=== PATIENT | female | born 1995 | race Asian ===

== ENCOUNTER 2018-08-24 16:45 | Observation (INO) | payer SELFPAY ==
[2018-08-24] MEDS ORDERED: IV RINGERS,LACTATED 1000ML 1,000 ML IV SCH (17:59)
[2018-08-24 18:17] LABS: BILIRUBIN,URINE SMALL (NEG); CLARITY,URINE CLEAR; COLOR,URINE AMBER; NITRITE,URINE NEGATIVE (NEG); PROTEIN,URINE 100 mg/dL (NEG-TRACE)
[2018-08-24 18:23] LABS: RBC,URINE OCC /HPF (0-2); WBC,URINE TNTC /HPF (0-4)
[2018-08-24 18:24] LABS: BACTERIA,URINE MODERATE /HPF (0-FEW); SQUAMOUS EPITHELIAL CELL,UR MOD /LPF
[2018-08-24 19:07] LABS: BASO % 0 % (0-3); EOS # 0.1 x10^3/uL (0.0-0.7); EOS % 1 % (0-3); HEMATOCRIT 27.3 % (36.0-47.0); HEMOGLOBIN 8.1 g/dL (12.0-15.5); LYMPH # 1.6 x10^3/uL (1.0-4.8); LYMPH % 20 % (24-48); MEAN CORPUSCULAR HEMOGLOBIN 21 pg (25-35); MEAN CORPUSCULAR HGB CONC 30 g/dL (31-37); MEAN CORPUSCULAR VOLUME 71 fL (79-100); MONO # 0.7 x10^3/uL (0.0-1.1); MONO % 9 % (0-9); NEUT # 5.6 x10^3uL (1.8-7.7); NEUT % 70 % (31-73); PLATELET COUNT 345 x10^3/uL (140-400); RED BLOOD COUNT 3.85 x10^6/uL (3.50-5.40); RED CELL DISTRIBUTION WIDTH 22.8 % (11.5-14.5)
[2018-08-24 19:23] LABS: PLT ESTIMATE ADEQUATE (ADEQUATE)
[2018-08-24 19:25] LABS: ANISOCYTOSIS MOD; HYPOCHROMIA MOD; MICROCYTOSIS MOD; OVALOCYTES FEW; POIKILOCYTOSIS SLIGHT
--- NOTE | 2018-08-24 20:23 | RAD ---
OB ultrasonogram 14 weeks HISTORY: pain and no care Sonographic examination of the was performed by transabdominal technique and multiple static images were obtained. There is a single live intrauterine. Superior the heartbeat is confirmed at 132 beats for minute. This is a cephalic position. There is an anterior grade 3 placenta with calcifications and venous lakes. Visualization of structures is limited at this advanced gestational age. The heart bladder and spine appear normal. The umbilical cord insertion is not well seen. The measurements are as follows: BPD 9.6 cm 39 weeks 1 day Head circumference 34 cm 30 weeks 6 days Abdominal circumference 37 cm 40 weeks 5 days Femur length 7.7 cm 39 weeks 4 days Estimated size is 39 weeks 4 days with an estimated date of confinement of August 27, 2018. Estimated weight is 8 lbs. 12 oz. +/- 21 ounces. IMPRESSION: 1. Single live intrauterine at 39 weeks 4 days. 2. Cephalic position. 3. Anterior placenta. Electronically signed by: Tylor De La Cruz III, MD (08/24/2018 8:20 PM) [facility]
== END 2018-08-24 20:15 | disposition home or self-care (01) ==
LOC: 3 SO LND 16:45
PROVIDERS: ADMIT Obstetrics & Gynecology; ATTEND Obstetrics & Gynecology
DX: O26.893 Other specified pregnancy related conditions, third trimester (principal); R10.9 Unspecified abdominal pain; Z3A.39 39 weeks gestation of pregnancy
CPT/HCPCS: 36415; 76805; 81001; 82947; 85025; 86592; 86762; 86850; 86900; 86901; 87086; 87340; G0378; G0379

== ENCOUNTER 2018-08-28 17:46 | Inpatient (IN) | payer SELFPAY ==
[~2018-08-28] VITALS: Ht 162.6 cm; Wt 69.9 kg
[2018-08-28] MEDS ORDERED: BUTORPHANOL 2 MG/ML VIAL. IV PRN (18:15)
[2018-08-28] MEDS ORDERED: ONDANSETRON PF 4 MG/2 ML VIAL. IV PRN (18:15)
[2018-08-28] MEDS ORDERED: TERBUTALINE 1 MG/ML VIAL. SQ PRN (18:15)
[2018-08-28] MEDS ORDERED: 0.9 % SODIUM CHLORIDE 10 ML DISP.SYRIN. IV PRN ×2 (18:15→22:45)
[2018-08-28] MEDS ORDERED: CITRIC ACID/SODIUM CITRATE 30 ML SOLUTION. PO PRN (18:15)
[2018-08-28] MEDS ORDERED: LIDOCAINE 1% PF 30 ML VIAL. INJ PRN (18:15)
[2018-08-28] MEDS ORDERED: fentaNYL PF VIAL 100 MCG/2 ML VIAL IV PRN ×2 (18:15)
[2018-08-28] MEDS ORDERED: OXYTOCIN 30 UNIT/500 ML PREMIX 500 ML IV PRN ×2 (18:15→22:45)
[2018-08-28] MEDS ORDERED: AMPICILLIN SODIUM 2 GM in IV NORMAL SALINE 100ML 100 ML IV ONE (18:30)
[2018-08-28] MEDS ORDERED: IV RINGERS,LACTATED 1000ML 1,000 ML IV SCH (18:30)
[2018-08-28 18:39] LABS: BILIRUBIN,URINE SMALL (NEG); CLARITY,URINE CLEAR; COLOR,URINE AMBER; NITRITE,URINE NEGATIVE (NEG); PROTEIN,URINE >=300 mg/dL (NEG-TRACE)
[2018-08-28 18:42] VITALS: BP 133/86
[2018-08-28 18:44] LABS: BASO % 0 % (0-3); EOS # 0.1 x10^3/uL (0.0-0.7); EOS % 1 % (0-3); HEMATOCRIT 28.8 % (36.0-47.0); HEMOGLOBIN 8.6 g/dL (12.0-15.5); LYMPH # 1.5 x10^3/uL (1.0-4.8); LYMPH % 19 % (24-48); MEAN CORPUSCULAR HEMOGLOBIN 21 pg (25-35); MEAN CORPUSCULAR HGB CONC 30 g/dL (31-37); MEAN CORPUSCULAR VOLUME 70 fL (79-100); MONO # 0.6 x10^3/uL (0.0-1.1); MONO % 8 % (0-9); NEUT # 5.8 x10^3uL (1.8-7.7); NEUT % 72 % (31-73); PLATELET COUNT 348 x10^3/uL (140-400); RED BLOOD COUNT 4.11 x10^6/uL (3.50-5.40)
[2018-08-28 18:45] LABS: BARBITURATES NEG (NEG); BENZODIAZEPINES NEG (NEG); CANNABINOIDS NEG (NEG); COCAINE NEG (NEG); METHADONE NEG (NEG); OPIATES NEG (NEG); PHENCYCLIDINE NEG (NEG)
[2018-08-28 18:48] LABS: AMPHETAMINE/METHAMPHETAMINE NEG (NEG)
[2018-08-28 19:10] LABS: ANISOCYTOSIS MOD; HYPOCHROMIA MOD; MICROCYTOSIS MOD; PLT ESTIMATE ADEQUATE (ADEQUATE); POIKILOCYTOSIS SLIGHT
[2018-08-28 19:11] LABS: OVALOCYTES FEW; POLYCHROMASIA SLIGHT
[2018-08-28 19:22] LABS: CREATININE,RANDOM URINE 144.6 mg/dL (Not Establ.)
[2018-08-28 19:31] LABS: ALBUMIN 2.1 g/dL (3.4-5.0); ALBUMIN/GLOBULIN RATIO 0.5 (1.0-1.7); ALK PHOS 208 U/L (46-116); ANION GAP 13 (6-14); AST (SGOT) 17 U/L (15-37); BLOOD UREA NITROGEN 9 mg/dL (7-20); BUN/CREATININE RATIO 18 (6-20); CALCIUM 8.5 mg/dL (8.5-10.1); CARBON DIOXIDE 20 mmol/L (21-32); CHLORIDE 105 mmol/L (98-107); CREATININE 0.5 mg/dL (0.6-1.0); GFR 155.7; GLUCOSE 87 mg/dL (70-99); POTASSIUM 3.9 mmol/L (3.5-5.1); SODIUM 138 mmol/L (136-145); TOTAL BILIRUBIN 0.5 mg/dL (0.2-1.0); TOTAL PROTEIN 6.5 g/dL (6.4-8.2); URIC ACID 4.1 mg/dL (2.6-6.0)
[2018-08-28 19:53] LABS: ALT (SGPT) < 6 U/L (14-59)
[2018-08-28] MEDS ORDERED: AMPICILLIN SODIUM 1 GM in IV NORMAL SALINE 50ML 50 ML IV SCH (20:30)
[2018-08-28] MEDS ORDERED: ACETAMINOPHEN 325 MG TABLET. PO PRN (22:45)
[2018-08-28] MEDS ORDERED: MAGNESIUM HYDROXIDE 2,400 MG/30 ML ORAL.SUSP. PO PRN (22:45)
[2018-08-28] MEDS ORDERED: HYDROCORTISONE 1% TOPICAL OINTMENT 30GM TUBE. TP PRN (22:45)
[2018-08-28] MEDS ORDERED: ZOLPIDEM 5 MG TABLET. PO PRN (22:45)
[2018-08-28] MEDS ORDERED: DOCUSATE SODIUM 100 MG CAPSULE. PO PRN (22:45)
[2018-08-28] MEDS ORDERED: MMR per PROTOCOL. MC PRN (22:45)
[2018-08-28] MEDS ORDERED: SIMETHICONE 80 MG TAB.CHEW PO PRN (22:45)
[2018-08-28] MEDS ORDERED: PHENYLEPH/MINERAL OIL/PETROLAT RECTAL OINTMENT 28GM TUBE. RC PRN (22:45)
[2018-08-28] MEDS ORDERED: BENZOCAINE 20% TOPICAL AEROSOL SPRAY 57GM CAN. TP PRN (22:45)
[2018-08-28] MEDS ORDERED: MAG HYDROX/ALUMINUM HYD/SIMETH 30 ML ORAL.SUSP PO PRN (22:45)
[2018-08-28] MEDS ORDERED: oxyCODONE/APAP 5/325 1 TAB TABLET PO PRN (22:45)
[2018-08-28] MEDS ORDERED: diphenhydrAMINE HCL 25 MG CAPSULE PO PRN (22:45)
--- NOTE | 2018-08-28 22:48 | PDOC ---
GENERAL General: 22 yrs old Term admitted in active labor.Cervix dilated to 6cm. Membranes intact. VITAL SIGNS Vital Signs: Vital Signs Date Time Temp Pulse Resp B/P (MAP) Pulse Ox O2 Delivery O2 Flow Rate FiO2 08/28/18 18:42 99.3 76 20 133/86 (102) 99.3 ALLERGIES Allergies: Allergies Coded Allergies Type Severity Reaction Last Updated Verified No Known Drug Allergies 08/24/18 No MEDS Medications: Current Medications Medications (Trade) Dose Ordered Sig/Ana Maria Start Time Stop Time Status Last Admin Dose Admin Ampicillin Sodium 1 gm/Sodium Chloride 50 ml @ 100 mls/hr Q4H 08/28/18 20:30 Ampicillin Sodium 2 gm/Sodium Chloride 100 ml @ 200 mls/hr 1X ONCE 08/28/18 18:30 08/28/18 18:59 DC 08/28/18 18:38 200 MLS/HR Butorphanol Tartrate (Stadol) 2 mg PRN Q1HR PRN 08/28/18 18:15 Citric Acid/ Sodium Citrate (Bicitra) 30 ml 1X PRN PRN 08/28/18 18:15 08/29/18 18:14 Fentanyl Citrate (Fentanyl 2ml Vial) 100 mcg PRN Q30MIN PRN 08/28/18 18:15 Ibuprofen (Motrin) 800 mg PRN Q6HRS PRN 08/28/18 18:15 Lidocaine HCl (Xylocaine 1% Pf 30ml Vial) 30 ml 1X PRN PRN 08/28/18 18:15 08/30/18 18:14 Ondansetron HCl (Zofran) 4 mg PRN Q4HRS PRN 08/28/18 18:15 Oxytocin/Sodium Chloride 500 ml @ 0 mls/hr CONT PRN PRN 08/28/18 18:15 Ringer's Solution 1,000 ml @ 125 mls/hr Q8H 08/28/18 18:30 08/28/18 18:39 125 MLS/HR Sodium Chloride (Normal Saline Flush) 3 ml QSHIFT PRN 08/28/18 18:15 Terbutaline Sulfate (Brethine) 0.25 mg 1X PRN PRN 08/28/18 18:15 08/29/18 18:14 LAB Lab: Laboratory Tests Test 08/28/18 16:30 4/28/19 18:25 08/28/18 18:30 Urine Collection Type Unknown Urine Color Charlee Urine Clarity Clear Urine pH 6.0 Urine Specific [place] 1.025 Urine Protein >=300 mg/dL (NEG-TRACE) Urine Glucose (UA) Negative mg/dL (NEG) Urine Ketones (Stick) Negative mg/dL (NEG) Urine Blood Moderate (NEG) Urine Nitrite Negative (NEG) Urine Bilirubin Small (NEG) Urine Urobilinogen Dipstick 2.0 mg/dL (0.2 mg/dL) Urine Leukocyte Esterase Small (NEG) Urine Opiates Screen Neg (NEG) Urine Methadone Screen Neg (NEG) Urine Barbiturates Neg (NEG) Urine Phencyclidine Screen Neg (NEG) Urine Amphetamine/Methamphetamine Neg (NEG) Urine Benzodiazepines Screen Neg (NEG) Urine Cocaine Screen Neg (NEG) Urine Cannabinoids Screen Neg (NEG) Urine Ethyl Alcohol Neg (NEG) White Blood Count 8.0 x10^3/uL (4.0-11.0) Red Blood Count 4.11 x10^6/uL (3.50-5.40) Hemoglobin 8.6 g/dL (12.0-15.5) Hematocrit 28.8 % (36.0-47.0) Mean Corpuscular Volume 70 fL (79-100) Mean Corpuscular Hemoglobin 21 pg (25-35) Mean Corpuscular Hemoglobin Concent 30 g/dL (31-37) Red Cell Distribution Width 22.0 % (11.5-14.5) Platelet Count 348 x10^3/uL (140-400) Neutrophils (%) (Auto) 72 % (31-73) Lymphocytes (%) (Auto) 19 % (24-48) Monocytes (%) (Auto) 8 % (0-9) Eosinophils (%) (Auto) 1 % (0-3) Basophils (%) (Auto) 0 % (0-3) Neutrophils # (Auto) 5.8 x10^3uL (1.8-7.7) Lymphocytes # (Auto) 1.5 x10^3/uL (1.0-4.8) Monocytes # (Auto) 0.6 x10^3/uL (0.0-1.1) Eosinophils # (Auto) 0.1 x10^3/uL (0.0-0.7) Basophils # (Auto) 0.0 x10^3/uL (0.0-0.2) Platelet Estimate Adequate (ADEQUATE) Polychromasia Slight Hypochromasia Mod Poikilocytosis Slight Anisocytosis Mod Microcytosis Mod Ovalocytes Few Sodium Level 138 mmol/L (136-145) Potassium Level 3.9 mmol/L (3.5-5.1) Chloride Level 105 mmol/L (98-107) Carbon Dioxide Level 20 mmol/L (21-32) Anion Gap 13 (6-14) Blood Urea Nitrogen 9 mg/dL (7-20) Creatinine 0.5 mg/dL (0.6-1.0) Estimated GFR (Cockcroft-Gault) 155.7 BUN/Creatinine Ratio 18 (6-20) Glucose Level 87 mg/dL (70-99) Uric Acid 4.1 mg/dL (2.6-6.0) Calcium Level 8.5 mg/dL (8.5-10.1) Total Bilirubin 0.5 mg/dL (0.2-1.0) Aspartate Amino Transf (AST/SGOT) 17 U/L (15-37) Alanine Aminotransferase (ALT/SGPT) < 6 U/L (14-59) Alkaline Phosphatase 208 U/L (46-116) Total Protein 6.5 g/dL (6.4-8.2) Albumin 2.1 g/dL (3.4-5.0) Albumin/Globulin Ratio 0.5 (1.0-1.7) Treponema pallidum Antibody Nonreactive (Nonreactive) Urine Random Creatinine 144.6 mg/dL (Not Establ.) Urine Random Total Protein 513.2 mg/dL (Not Establ.) Urine Protein/Creatinine Ratio 3549 mg/g (0-200) ASSESSMENT & PLAN A&P Patient in Active labor. Plan Vaginal Delivery. ALISON ROSEN MD Aug 28, 2018 22:48
[2018-08-29] MEDS ORDERED: IBUPROFEN 200 MG TABLET. PO SCH
--- NOTE | 2018-08-29 02:38 | OP ---
DATE OF SURGERY: 08/28/2018 DELIVERY NOTE This patient is a 22-year-old [place] lady who is a 2, para 1, term , comes into Labor and Delivery room with a history of having contractions. The patient in active labor at the time of admission to the hospital, cervix dilated to about 6 cm and the patient having active labor contractions and membranes intact, vertex presenting. heart tones are 146 per minute and she did got to complete dilatation, had a spontaneous vaginal delivery. A live male infant weighing 9 pound 9 ounce was delivered at 2350 hours with the score of 8, 9 and 9 without any problem. Cord was clamped and cut. Cord pHs were sent for and a left mediolateral episiotomy was given at the time of the delivery under local block. This was sutured with 2-0 chromic catgut sutures and the estimated blood loss about 300 mL. Baby is referred to mimeograph operator for further care and treatment. Mother tolerated the delivery well. No complications at this time. ALISON ROSEN MD DR: GIANNA/elle JOB#: [id number] / [id number]
[2018-08-29 03:45] VITALS: BP 114/74
[2018-08-29 05:14] VITALS: BP 113/71
[2018-08-29] MEDS: FERROUS SULFATE 325 MG TABLET. PO SCH ×2 (09:28→17:41)
[2018-08-29] MEDS: IBUPROFEN 400 MG TABLET. PO PRN (09:32)
[2018-08-29 10:52] VITALS: BP 109/59
--- NOTE | 2018-08-29 11:50 | PDOC ---
GENERAL General: Vital signs stable. Normal amount of bleeding. Patient sleepy. VITAL SIGNS Vital Signs: Vital Signs Date Time Temp Pulse Resp B/P (MAP) Pulse Ox O2 Delivery O2 Flow Rate FiO2 08/29/18 10:52 98.8 77 16 109/59 (76) 98 Room Air 98.8 I & O I & O Intake and Output 08/29/18 07:00 Intake Total 100 ml Balance 100 ml Intake IV Total 100 ml ALLERGIES Allergies: Allergies Coded Allergies Type Severity Reaction Last Updated Verified No Known Drug Allergies 08/24/18 No MEDS Medications: Current Medications Medications (Trade) Dose Ordered Sig/Ana Maria Start Time Stop Time Status Last Admin Dose Admin Acetaminophen (Tylenol) 650 mg PRN Q6HRS PRN 08/28/18 22:45 Al Hydroxide/Mg Hydroxide (Mylanta Plus Xs) 30 ml PRN Q4HRS PRN 08/28/18 22:45 Ampicillin Sodium 1 gm/Sodium Chloride 50 ml @ 100 mls/hr Q4H 08/28/18 20:30 Ampicillin Sodium 2 gm/Sodium Chloride 100 ml @ 200 mls/hr 1X ONCE 08/28/18 18:30 08/28/18 18:59 DC 08/28/18 18:38 200 MLS/HR Benzocaine (Americaine) 1 spray PRN QID PRN 08/28/18 22:45 Butorphanol Tartrate (Stadol) 2 mg PRN Q1HR PRN 08/28/18 18:15 Citric Acid/ Sodium Citrate (Bicitra) 30 ml 1X PRN PRN 08/28/18 18:15 08/29/18 18:14 Diphenhydramine HCl (Benadryl) 25 mg PRN Q6HRS PRN 08/28/18 22:45 Docusate Sodium (Colace) 100 mg PRN BID PRN 08/28/18 22:45 08/29/18 09:28 100 MG Fentanyl Citrate (Fentanyl 2ml Vial) 100 mcg PRN Q30MIN PRN 08/28/18 18:15 Ferrous Sulfate (Feosol) 325 mg BIDWMEALS 08/29/18 08:00 08/29/18 09:28 325 MG Hydrocortisone (Cortaid) 1 pranay PRN QID PRN 08/28/18 22:45 Ibuprofen (Motrin) 600 mg Q6HRS 08/29/18 00:00 Info (Do NOT chart on this placeholder) 1 ea 1X PRN PRN 08/28/18 22:45 Lidocaine HCl (Xylocaine 1% Pf 30ml Vial) 30 ml 1X PRN PRN 08/28/18 18:15 08/30/18 18:14 08/29/18 00:07 30 ML Magnesium Hydroxide (Milk Of Magnesia) 2,400 mg PRN DAILY PRN 08/28/18 22:45 Ondansetron HCl (Zofran) 4 mg PRN Q4HRS PRN 08/28/18 18:15 Oxycodone/ Acetaminophen (Percocet 5/325) 2 tab PRN Q4HRS PRN 08/28/18 22:45 Oxytocin/Sodium Chloride 500 ml @ 62.5 mls/hr CONT PRN 08/28/18 22:45 08/29/18 06:44 DC 08/29/18 00:08 62.5 MLS/HR Phenyleph/Shark Oil/Min Oil/Petrol (Preparation H) 1 pranay PRN QID PRN 08/28/18 22:45 Ringer's Solution 1,000 ml @ 125 mls/hr Q8H 08/28/18 18:30 08/28/18 18:39 125 MLS/HR Simethicone (Gas-X) 80 mg PRN AFTMEALHC PRN 08/28/18 22:45 Sodium Chloride (Normal Saline Flush) 10 ml QSHIFT PRN 08/28/18 22:45 Terbutaline Sulfate (Brethine) 0.25 mg 1X PRN PRN 08/28/18 18:15 08/29/18 18:14 Zolpidem Tartrate (Ambien) 5 mg PRN QHS PRN 08/28/18 22:45 LAB Lab: Laboratory Tests Test 08/28/18 16:30 08/28/18 18:25 08/28/18 18:30 08/29/18 04:45 Urine Collection Type Unknown Urine Color Charlee Urine Clarity Clear Urine pH 6.0 Urine Specific [place] 1.025 Urine Protein >=300 mg/dL (NEG-TRACE) Urine Glucose (UA) Negative mg/dL (NEG) Urine Ketones (Stick) Negative mg/dL (NEG) Urine Blood Moderate (NEG) Urine Nitrite Negative (NEG) Urine Bilirubin Small (NEG) Urine Urobilinogen Dipstick 2.0 mg/dL (0.2 mg/dL) Urine Leukocyte Esterase Small (NEG) Urine Opiates Screen Neg (NEG) Urine Methadone Screen Neg (NEG) Urine Barbiturates Neg (NEG) Urine Phencyclidine Screen Neg (NEG) Urine Amphetamine/Methamphetamine Neg (NEG) Urine Benzodiazepines Screen Neg (NEG) Urine Cocaine Screen Neg (NEG) Urine Cannabinoids Screen Neg (NEG) Urine Ethyl Alcohol Neg (NEG) White Blood Count 8.0 x10^3/uL (4.0-11.0) Red Blood Count 4.11 x10^6/uL (3.50-5.40) Hemoglobin 8.6 g/dL (12.0-15.5) Hematocrit 28.8 % (36.0-47.0) 24.5 % (36.0-47.0) Mean Corpuscular Volume 70 fL (79-100) Mean Corpuscular Hemoglobin 21 pg (25-35) Mean Corpuscular Hemoglobin Concent 30 g/dL (31-37) Red Cell Distribution Width 22.0 % (11.5-14.5) Platelet Count 348 x10^3/uL (140-400) Neutrophils (%) (Auto) 72 % (31-73) Lymphocytes (%) (Auto) 19 % (24-48) Monocytes (%) (Auto) 8 % (0-9) Eosinophils (%) (Auto) 1 % (0-3) Basophils (%) (Auto) 0 % (0-3) Neutrophils # (Auto) 5.8 x10^3uL (1.8-7.7) Lymphocytes # (Auto) 1.5 x10^3/uL (1.0-4.8) Monocytes # (Auto) 0.6 x10^3/uL (0.0-1.1) Eosinophils # (Auto) 0.1 x10^3/uL (0.0-0.7) Basophils # (Auto) 0.0 x10^3/uL (0.0-0.2) Platelet Estimate Adequate (ADEQUATE) Polychromasia Slight Hypochromasia Mod Poikilocytosis Slight Anisocytosis Mod Microcytosis Mod Ovalocytes Few Sodium Level 138 mmol/L (136-145) Potassium Level 3.9 mmol/L (3.5-5.1) Chloride Level 105 mmol/L (98-107) Carbon Dioxide Level 20 mmol/L (21-32) Anion Gap 13 (6-14) Blood Urea Nitrogen 9 mg/dL (7-20) Creatinine 0.5 mg/dL (0.6-1.0) Estimated GFR (Cockcroft-Gault) 155.7 BUN/Creatinine Ratio 18 (6-20) Glucose Level 87 mg/dL (70-99) Uric Acid 4.1 mg/dL (2.6-6.0) Calcium Level 8.5 mg/dL (8.5-10.1) Total Bilirubin 0.5 mg/dL (0.2-1.0) Aspartate Amino Transf (AST/SGOT) 17 U/L (15-37) Alanine Aminotransferase (ALT/SGPT) < 6 U/L (14-59) Alkaline Phosphatase 208 U/L (46-116) Total Protein 6.5 g/dL (6.4-8.2) Albumin 2.1 g/dL (3.4-5.0) Albumin/Globulin Ratio 0.5 (1.0-1.7) Treponema pallidum Antibody Nonreactive (Nonreactive) Urine Random Creatinine 144.6 mg/dL (Not Establ.) Urine Random Total Protein 513.2 mg/dL (Not Establ.) Urine Protein/Creatinine Ratio 3549 mg/g (0-200) ASSESSMENT & PLAN A&P Abdomen soft. Uterus firm. Lochia normal. ALISON ROSEN MD Aug 29, 2018 11:50
--- NOTE | 2018-08-29 13:43 | NUR ---
[facility] following up with referral regarding no PNC, negative drug screen, and WIC referral. ADDIS met with pt and pt's cousin Tamara to discuss circumstances surrounding referral. Pt is from [facility] and does not speak Romansh. Pt's cousin spoke on her behalf. Per cousin, pt was not receiving PNC due to not having insurance and cultural reasons. Cousin reported pt has a good support system but does not have a lot of the supplies needed for baby. Cousin stated in their culture, they get things after baby is born. SW stressed the importance of making a follow up appointment. Cousin agreed to make appointment. [facility]DIS provided pt with [facility] resources and [facility]. Pt is agreeable to referral to [facility] to help with services and to get signed up for WIC. ADDIS faxed referral, fax: [phone]. Pt's RN Claudia Florez in the nursery has been notified.
[2018-08-29 17:40] VITALS: BP 108/62
[2018-08-29] MEDS ORDERED: MEASLES, MUMPS & RUBELLA VACC 0.5 ML VIAL. VAX SQ ONE (19:30)
[2018-08-29 21:00] VITALS: BP 108/68
[2018-08-30 05:19] VITALS: BP 117/79
[2018-08-30] MEDS: IBUPROFEN 400 MG TABLET. PO PRN (07:45)
[2018-08-30 14:32] VITALS: BP 114/77
--- NOTE | 2018-09-08 10:02 | HP ---
ADMIT DATE: 08/28/2018 CHIEF COMPLAINT AND HISTORY OF PRESENT ILLNESS: This patient is a 22-year-old female, who is [place], 2, para 1, term , came into the hospital with a history of having contractions and at the time of admission to the hospital she was in active labor, cervix 6 cm dilated, membranes intact. PHYSICAL EXAMINATION: VITAL SIGNS: Reveals vital signs being stable. HEAD, EYES, NOSE, AND THROAT: Within normal limits. LUNGS: Clear. HEART: Sounds regular sinus rhythm. ABDOMEN: Soft, term size uterus. heart tones are 148 per minute, vertex presenting. PELVIC: Showed cervix dilated to 6 cm and membranes intact and vertex presenting. IMPRESSION: 2, para 1, term . PLAN: Vaginal delivery. ALISON ROSEN MD DR: GIANNA/elle JOB#: [id number] / [id number]
== END 2018-08-30 17:10 | disposition home or self-care (01) | DRG 807 ==
LOC: 3 SO LND 17:46 → OBSVTOIN 17:46 → 3 NORTH 08-29 03:45
PROVIDERS: ADMIT Obstetrics & Gynecology; ATTEND Obstetrics & Gynecology
PROC: 10E0XZZ Delivery of Products of Conception, External Approach (ICD-10-PCS; principal; 2018-08-29)
PROC: 0W8NXZZ Division of Female Perineum, External Approach (ICD-10-PCS; 2018-08-29)
DX: O80 Encounter for full-term uncomplicated delivery (principal); Z37.0 Single live birth; Z3A.40 40 weeks gestation of pregnancy
CPT/HCPCS: 36415; 80053; 80307; 81003; 82570; 84156; 84550; 85014; 85025; 86592; 86850; 86900; 86901; G0378; J0290; J2590; J7120

== ENCOUNTER 2019-03-31 12:04 | Emergency (ER) | payer MEDICAID ==
[~2019-03-31] VITALS: Ht 162.6 cm; Wt 58.1 kg
[2019-03-31 12:17] VITALS: BP 130/77
[2019-03-31 13:00] LABS: BASO % 1 % (0-3); EOS % 0 % (0-3); HEMATOCRIT 26.9 % (36.0-47.0); LYMPH # 1.4 x10^3/uL (1.0-4.8); LYMPH % 36 % (24-48); MEAN CORPUSCULAR HEMOGLOBIN 18 pg (25-35); MEAN CORPUSCULAR HGB CONC 30 g/dL (31-37); MEAN CORPUSCULAR VOLUME 61 fL (79-100); MONO # 0.5 x10^3/uL (0.0-1.1); MONO % 13 % (0-9); NEUT % 50 % (31-73); PLATELET COUNT 332 x10^3/uL (140-400); RED BLOOD COUNT 4.39 x10^6/uL (3.50-5.40); RED CELL DISTRIBUTION WIDTH 17.7 % (11.5-14.5)
[2019-03-31] MEDS ORDERED: ONDANSETRON PF 4 MG/2 ML VIAL. IV ONE (13:00)
[2019-03-31] MEDS ORDERED: IV NORMAL SALINE 1000ML BAG 1,000 ML IV ONE (13:00)
[2019-03-31 13:08] LABS: CALCIUM 8.1 mg/dL (8.5-10.1); CREATININE 0.8 mg/dL (0.6-1.0); GFR 89.7; POTASSIUM 3.8 mmol/L (3.5-5.1)
[2019-03-31 13:13] LABS: ALBUMIN 3.7 g/dL (3.4-5.0); ALBUMIN/GLOBULIN RATIO 0.8 (1.0-1.7); TOTAL BILIRUBIN 0.2 mg/dL (0.2-1.0); TOTAL PROTEIN 8.2 g/dL (6.4-8.2)
[2019-03-31 13:32] LABS: ANISOCYTOSIS MOD; HYPOCHROMIA PRESENT; PLT ESTIMATE ADEQUATE (ADEQUATE)
[2019-03-31 13:33] LABS: BIZZARE CELLS OCC; MICROCYTOSIS PRESENT; POIKILOCYTOSIS SLIGHT
[2019-03-31 14:21] LABS: BILIRUBIN,URINE NEGATIVE (NEG); CLARITY,URINE CLEAR; COLOR,URINE YELLOW; NITRITE,URINE NEGATIVE (NEG); PH,URINE 5.5; PROTEIN,URINE >=300 mg/dL (NEG-TRACE); UROBILINOGEN,URINE 0.2 mg/dL (0.2 mg/dL)
[2019-03-31 14:33] LABS: SQUAMOUS EPITHELIAL CELL,UR MOD /LPF
[2019-03-31 14:34] LABS: BACTERIA,URINE FEW /HPF (0-FEW)
[2019-03-31] MEDS ORDERED: CEPH500C PO (15:21)
[2019-03-31] MEDS ORDERED: ONDA4TAB11 PO (15:21)
--- NOTE | 2019-03-31 15:21 | PHYS DOC ---
Past Medical History Past Medical History: No Pertinent History (TIESHA LANCASTER APRN) Past Surgical History: No Surgical History (TIESHA LANCASTER APRN) Alcohol Use: None Drug Use: None (TIESHA LANCASTER APRN) Attending Signature I have participated in the care of this patient and I have reviewed and agree with all pertinent clinical information above including history, exam, and recommendations. (MANASA GARCIA MD) Adult General Chief Complaint Chief Complaint: URINARY FREQUENCY HPI HPI Patient is a 23 year old female, accompanied by her sister, who presents to the emergency department with complaints of lower abdominal pain, dysuria, increased urinary frequency, and nausea for the last 4 days. Patient denies any loss of bowel or bladder control, low back pain, fever, vomiting, diarrhea, chest pain, shortness of breath, cough, or wheezing. Patient also denies any irregular vaginal discharge, vaginal odor, vaginal itching, or bleeding. She currently rates her pain a 5 out of 10 on the pain scale and describes it as lower a bdominal cramping. He denies any alleviating or exacerbating factors. Patient reports that her last menstrual cycle was on March 132018, she denies any concerns of .All other ROS is neg unless otherwise noted in HPI. (TIESHA LANCASTER APRN) Review of Systems Review of Systems See Above (TIESHA LANCASTER APRN) Current Medications Current Medications Current Medications Medications (Trade) Dose Ordered Sig/Ana Maria Start Time Stop Time Status Last Admin Dose Admin Ondansetron HCl (Zofran) 4 mg 1X ONCE 03/31/19 13:00 03/31/19 13:01 DC 03/31/19 13:01 4 MG Sodium Chloride 1,000 ml @ 1,000 mls/hr 1X ONCE 03/31/19 13:00 03/31/19 13:59 DC 03/31/19 13:01 1,000 MLS/HR (MANASA GARCIA MD) Allergies Allergies Allergies Coded Allergies Type Severity Reaction Last Updated Verified No Known Drug Allergies 08/24/18 No (MANASA GARCIA MD) Physical Exam Physical Exam See Above Constitutional: Well developed, well nourished, no acute distress, non-toxic appearance. [] HENT: Normocephalic, atraumatic, bilateral external ears normal, oropharynx moist, no oral exudates, nose normal. [] Eyes: PERRLA, EOMI, conjunctiva normal, no discharge. [] Neck: Normal range of motion, no stridor. [] Cardiovascular:Heart rate regular rhythm, no murmur [] Lungs & Thorax: Bilateral breath sounds clear to auscultation [] Abdomen: Bowel sounds normal, soft, no tenderness, no masses, no pulsatile masses. [] Skin: Warm, dry, no erythema, no rash. [] Back: No tenderness, no CVA tenderness. [] Extremities: No cyanosis, ROM intact, no edema. [] Neurologic: Alert and oriented X 3, no focal deficits noted. [] Psychologic: Affect normal, judgement normal, mood normal. [] (TIESHA LANCASTER APRN) Current Patient Data Vital Signs Vital Signs Date Time Temp Pulse Resp B/P (MAP) Pulse Ox O2 Delivery O2 Flow Rate FiO2 03/31/19 12:17 99.2 90 18 130/77 (94) 100 Room Air 99.2 (MANASA GARCIA MD) Lab Values Laboratory Tests Test 03/31/19 12:54 03/31/19 14:13 White Blood Count 4.0 x10^3/uL (4.0-11.0) Red Blood Count 4.39 x10^6/uL (3.50-5.40) Hemoglobin 8.0 g/dL (12.0-15.5) L Hematocrit 26.9 % (36.0-47.0) L Mean Corpuscular Volume 61 fL (79-100) L Mean Corpuscular Hemoglobin 18 pg (25-35) L Mean Corpuscular Hemoglobin Concent 30 g/dL (31-37) L Red Cell Distribution Width 17.7 % (11.5-14.5) H Platelet Count 332 x10^3/uL (140-400) Neutrophils (%) (Auto) 50 % (31-73) Lymphocytes (%) (Auto) 36 % (24-48) Monocytes (%) (Auto) 13 % (0-9) H Eosinophils (%) (Auto) 0 % (0-3) Basophils (%) (Auto) 1 % (0-3) Neutrophils # (Auto) 2.0 x10^3/uL (1.8-7.7) Lymphocytes # (Auto) 1.4 x10^3/uL (1.0-4.8) Monocytes # (Auto) 0.5 x10^3/uL (0.0-1.1) Eosinophils # (Auto) 0.0 x10^3/uL (0.0-0.7) Basophils # (Auto) 0.0 x10^3/uL (0.0-0.2) Platelet Estimate Adequate (ADEQUATE) Hypochromasia Present Poikilocytosis Slight Anisocytosis Mod Microcytosis Present RBC Morphology Bizarre Forms Occ Sodium Level 138 mmol/L (136-145) Potassium Level 3.8 mmol/L (3.5-5.1) Chloride Level 103 mmol/L (98-107) Carbon Dioxide Level 20 mmol/L (21-32) L Anion Gap 15 (6-14) H Blood Urea Nitrogen 12 mg/dL (7-20) Creatinine 0.8 mg/dL (0.6-1.0) Estimated GFR (Cockcroft-Gault) 89.7 BUN/Creatinine Ratio 15 (6-20) Glucose Level 89 mg/dL (70-99) Calcium Level 8.1 mg/dL (8.5-10.1) L Total Bilirubin 0.2 mg/dL (0.2-1.0) Aspartate Amino Transferase (AST) 25 U/L (15-37) Alanine Aminotransferase (ALT) 12 U/L (14-59) L Alkaline Phosphatase 79 U/L (46-116) Total Protein 8.2 g/dL (6.4-8.2) Albumin 3.7 g/dL (3.4-5.0) Albumin/Globulin Ratio 0.8 (1.0-1.7) L Lipase 224 U/L (73-393) Urine Collection Type Void Urine Color Yellow Urine Clarity Clear Urine pH 5.5 Urine Specific [place] 1.025 Urine Protein >=300 mg/dL (NEG-TRACE) Urine Glucose (UA) Negative mg/dL (NEG) Urine Ketones (Stick) Negative mg/dL (NEG) Urine Blood Large (NEG) Urine Nitrite Negative (NEG) Urine Bilirubin Negative (NEG) Urine Urobilinogen Dipstick 0.2 mg/dL (0.2 mg/dL) Urine Leukocyte Esterase Negative (NEG) Urine RBC 1-2 /HPF (0-2) Urine WBC 5-10 /HPF (0-4) Urine Squamous Epithelial Cells Mod /LPF Urine Bacteria Few /HPF (0-FEW) Urine Mucus Mod /LPF Laboratory Tests 03/31/19 12:54 Laboratory Tests 03/31/19 12:54 Microbiology 03/31/19 Urine Culture - Final, Complete 03/31/19 Urine Culture Result 1 (GALDINO) - Final, Complete (MANASA GARCIA MD) EKG EKG [] (TIESHA LANCASTER APRN) Radiology/Procedures Radiology/Procedures [] (TIESHA LANCASTER APRN) Course & Med Decision Making Course & Med Decision Making Pertinent Labs and Imaging studies reviewed. (See chart for details) Patient is a 23-year-old female who presented to the emergency department with complaints of lower abdominal cramping, urinary frequency, dysuria, and nausea for the last 2 days. She was given a liter of normal saline and 4 mg of Zofran. Patient reported feeling better after these medications. Her UA revealed 5-10 white blood cell count, and few bacteria. Patient was symptomatic therefore a prescription was written for Keflex 500 mg by mouth twice a day 7 days. The patient's CBC revealed a hemoglobin of 8 and hematocrit of 26.9, the patient has a history of anemia her prior hemoglobins this year on record were 8.2 and 8.6 and denied any irregular bleeding. Patient states she just finished her menstrual cycle. Her CMP revealed a calcium of 8.1, was otherwise unremarkable. A prescription was also written for Zofran to take as needed for nausea and the patient was encouraged to drink clear fluids for the next 24 hours then advance to bland foods and as tolerated. Follow-up with her primary care doctor next week if symptoms persist, return to the ER symptoms worsen. The patient and her sister verbalized an understanding of home care, medications, follow-up, and return to ED instructions and was in agreement with the plan of care. [] (TIESHA LANCASTER APRN) Dragon Disclaimer Dragon Disclaimer This electronic medical record was generated, in whole or in part, using a voice recognition dictation system. (TIESHA LANCASTER APRN) Departure Departure Impression: Primary Impression: UTI (urinary tract infection) Additional Impressions: Nausea, vomiting, and diarrhea Anemia Disposition: 01 HOME, SELF-CARE Condition: STABLE Referrals: NO PCP (PCP) Patient Instructions: Diarrhea, Diet for Diarrhea, Adult, Nausea and Vomiting, [id number], Urinary Tract Infection, [id number] Additional Instructions: Fill prescription(s) and use as directed. Avoid bladder irritants such as caffeine, carbonation, and spicy foods. Recommend clear fluids for the next 24 hours. Then you may advance to bland foods such as bananas, rice, applesauce, an d dry toast. Follow-up with your primary care doctor next week for further evaluation of anemia. Return to the emergency room if your symptoms worsen. Scripts Cephalexin (CEPHALEXIN) 500 Mg Capsule 1 CAP PO BID for 7 Days, #14 CAP 0 Refills Prov: TIESHA LANCASTER APRN 03/31/19 Ondansetron Hcl (ONDANSETRON HCL) 4 Mg Tablet 1 TAB PO PRN Q6HRS PRN for NAUSEA/VOMITING for 3 Days, #10 TAB 0 Refills Prov: TIESHA LANCASTER APRN 03/31/19 Problem Qualifiers Primary Impression: UTI (urinary tract infection) Urinary tract infection type: site unspecified Hematuria presence: with hematuria Qualified Codes: N39.0 - Urinary tract infection, site not specified; R31.9 - Hematuria, unspecified Additional Impressions: Anemia Anemia type: unspecified type Qualified Codes: D64.9 - Anemia, unspecified TIESHA LANCASTER APRN Mar 31, 2019 15:21 MANASA GARCIA MD Apr 02, 2019 02:13
== END 2019-03-31 16:00 | disposition home or self-care (01) ==
LOC: ER 12:04
DX: N39.0 Urinary tract infection, site not specified (principal); R31.9 Hematuria, unspecified; D64.9 Anemia, unspecified; R11.2 Nausea with vomiting, unspecified; R19.7 Diarrhea, unspecified
CPT/HCPCS: 36415; 80053; 81001; 83690; 85025; 87086; 96361; 96374; 99284; J2405; J7030

== ENCOUNTER 2020-09-23 13:55 | Emergency (ER) | payer SELFPAY ==
[~2020-09-23] VITALS: Ht 165.1 cm; Wt 63.6 kg
[~2020-09-23 13:55] MED LIST: CEPH500C PO; ONDA-84 PO
[2020-09-23 15:48] LABS: BASO % 1 % (0-3); EOS # 0.1 x10^3/uL (0.0-0.7); EOS % 1 % (0-3); HEMATOCRIT 30.3 % (36.0-47.0); HEMOGLOBIN 9.6 g/dL (12.0-15.5); LYMPH # 1.9 x10^3/uL (1.0-4.8); LYMPH % 24 % (24-48); MEAN CORPUSCULAR HEMOGLOBIN 23 pg (25-35); MEAN CORPUSCULAR HGB CONC 32 g/dL (31-37); MEAN CORPUSCULAR VOLUME 71 fL (79-100); MONO # 0.7 x10^3/uL (0.0-1.1); MONO % 8 % (0-9); NEUT # 5.2 x10^3/uL (1.8-7.7); NEUT % 66 % (31-73); PLATELET COUNT 363 x10^3/uL (140-400); RED BLOOD COUNT 4.27 x10^6/uL (3.50-5.40); RED CELL DISTRIBUTION WIDTH 18.4 % (11.5-14.5); WHITE BLOOD COUNT 7.9 x10^3/uL (4.0-11.0)
[2020-09-23 15:53] LABS: BILIRUBIN,URINE NEGATIVE (NEG); CLARITY,URINE CLEAR; COLOR,URINE YELLOW; NITRITE,URINE NEGATIVE (NEG); PROTEIN,URINE 100 mg/dL (NEG-TRACE)
[2020-09-23 15:56] LABS: CALCIUM 8.2 mg/dL (8.5-10.1); CREATININE 0.7 mg/dL (0.6-1.0); GFR 103.7
[2020-09-23 16:02] LABS: ALBUMIN 3.3 g/dL (3.4-5.0); ALBUMIN/GLOBULIN RATIO 0.9 (1.0-1.7); TOTAL BILIRUBIN 0.3 mg/dL (0.2-1.0)
[2020-09-23 16:10] LABS: HYALINE CASTS, URINE OCCASIONAL /HPF
[2020-09-23 16:11] LABS: AMORPHOUS SEDIMENT,UR PRESENT /HPF; BACTERIA,URINE FEW /HPF (0-FEW)
--- NOTE | 2020-09-23 16:36 | RAD ---
Exam: Ultrasound pelvis complete Indication: Pelvic pain Technique: Real-time grayscale and color Doppler images of the pelvis were obtained by the department supervisor road administrator. Comparisons: None FINDINGS: Uterus measures 8.3 x 4.1 x 4.3 cm. Endometrium has a normal appearance measuring 4 mm in thickness. Right ovary measures 3.2 x 1.8 x 2.0 cm. Left ovary measures 2.5 x 2.0 x 2.8 cm. There is a cyst within the left ovary measuring up to 1.7 cm in diameter. Vascular flow identified in the ovaries bilaterally. No free fluid in pelvis. IMPRESSION: 1. Simple cyst in the left ovary measuring up to 1.7 cm. Pelvis torsion. 2. Normal sonographic appearance of the uterus. Electronically signed by: Faheem Akbar MD (09/23/2020 4:34 PM) ANJANA
--- NOTE | 2020-09-23 17:07 | RAD ---
EXAM: Abdomen, 2 views. HISTORY: Pain. COMPARISON: None. FINDINGS: Frontal upright and supine views of abdomen are obtained. There is a moderate amount of sto ol within the colon. There is no evidence of small bowel obstruction. There is no free air. IMPRESSION: Moderate colonic stool. Electronically signed by: Kaitlin Beaulieu MD (09/23/2020 5:04 PM) [id number]
[2020-09-23] MEDS ORDERED: POLY119P4 PO (19:00)
--- NOTE | 2020-09-23 19:00 | PHYS DOC ---
Past Medical History Past Medical History: No Pertinent History (GEETHA ROJ[address] [facility] [employer]REIGHT FIRER) Past Surgical History: No Surgical History (GEETHA ROJ[address] [employer] FIRER) Smoking Status: Never Smoker Alcohol Use: None Drug Use: None (GEETHA ROJAS APRN) General Adult EDM: Chief Complaint: ABDOMINAL PAIN IN HPI: HPI: Patient is a 24 year old female patient presenting to the ED today complaining of left lower quadrant abdominal pain that began yesterday. Patient denies any nausea or vomiting. She believes she is though her last menstrual cycle was less than a month ago. Communication very difficult, patient speaks [place], unable to find an accounts receivable administrator (GEETHA [address] [employer]IGHT FIRER) Review of Systems: Review of Systems: Constitutional: Denies fever or chills. [] Eyes: Denies change in visual acuity. [] HENT: Denies nasal congestion or sore throat. [] Respiratory: Denies cough or shortness of breath. [] Cardiovascular: Denies chest pain or edema. [] GI: Reports left lower quadrant abdominal pain, denies nausea, vomiting, bloody stools or diarrhea. [] : Denies dysuria. [] Musculoskeletal: Denies back pain or joint pain. [] Integument: Denies rash. [] Neurologic: Denies headache, focal weakness or sensory changes. [] Psychiatric: Denies depression or anxiety. [] (GEETHA [address] RO[address] F[employer] FIRER) Heart Score: C/O Chest Pain: N/A Risk Factors: Risk Factors: DM, Current or recent (<one month) smoker, HTN, HLP, family history of CAD, obesity. Risk Scores: Score 0 - 3: 2.5% MACE over next 6 weeks - Discharge Home Score 4 - 6: 20.3% MACE over next 6 weeks - Admit for Clinical Observation Score 7 - 10: 72.7% MACE over next 6 weeks - Early Invasive Strategies (GEETHA [address] FREIGHT FIRER) Allergies: Allergies: Allergies Coded Allergies Type Severity Reaction Last Updated Verified No Known Drug Allergies 08/24/18 No (GE[address]HA RO[address] RO[address] FREIGHT FIRER) Physical Exam: PE: Constitutional: Well developed, well nourished, no acute distress, non-toxic appearance. [] HENT: Normocephalic, atraumatic, bilateral external ears normal, oropharynx moist, no oral exudates, nose normal. [] Eyes: PERRLA, EOMI, conjunctiva normal, no discharge. [] Neck: Normal range of motion, no tenderness, supple, no stridor. [] Cardiovascular:Heart rate regular rhythm, no murmur [] Lungs & Thorax: Bilateral breath sounds clear to auscultation [] Abdomen: Bowel sounds normal, soft, no tenderness, no masses, no pulsatile masses. [] Skin: Warm, dry, no erythema, no rash. [] Back: No tenderness, no CVA tenderness. [] Extremities: No tenderness, no cyanosis, no clubbing, ROM intact, no edema. [] Neurologic: Alert and oriented X 3, normal motor function, normal sensory function, no focal deficits noted. [] Psychologic: Affect normal, judgement normal, mood normal. [] (GEETHA ROJAS APRN) Current Patient Data: Labs: Laboratory Tests Test 09/23/20 15:10 09/23/20 15:14 09/23/20 15:34 Urine Collection Type Void Urine Color Yellow Urine Clarity Clear Urine pH 6.0 (<5.0-8.0) Urine Specific Castor 1.020 (1.000-1.030) Urine Protein 100 mg/dL (NEG-TRACE) Urine Glucose (UA) Negative mg/dL (NEG) Urine Ketones (Stick) Negative mg/dL (NEG) Urine Blood Small (NEG) Urine Nitrite Negative (NEG) Urine Bilirubin Negative (NEG) Urine Urobilinogen Dipstick 1.0 mg/dL (0.2 mg/dL) Urine Leukocyte Esterase Small (NEG) Urine RBC 1-2 /HPF (0-2) Urine WBC 1-4 /HPF (0-4) Urine Squamous Epithelial Cells Many /LPF Urine Amorphous Sediment Present /HPF Urine Bacteria Few /HPF (0-FEW) Urine Hyaline Casts Occasional /HPF Urine Mucus Marked /LPF POC Urine HCG, Qualitative Hcg negative (Negative) White Blood Count 7.9 x10^3/uL (4.0-11.0) Red Blood Count 4.27 x10^6/uL (3.50-5.40) Hemoglobin 9.6 g/dL (12.0-15.5) L Hematocrit 30.3 % (36.0-47.0) L Mean Corpuscular Volume 71 fL (79-100) L Mean Corpuscular Hemoglobin 23 pg (25-35) L Mean Corpuscular Hemoglobin Concent 32 g/dL (31-37) Red Cell Distribution Width 18.4 % (11.5-14.5) H Platelet Count 363 x10^3/uL (140-400) Neutrophils (%) (Auto) 66 % (31-73) Lymphocytes (%) (Auto) 24 % (24-48) Monocytes (%) (Auto) 8 % (0-9) Eosinophils (%) (Auto) 1 % (0-3) Basophils (%) (Auto) 1 % (0-3) Neutrophils # (Auto) 5.2 x10^3/uL (1.8-7.7) Lymphocytes # (Auto) 1.9 x10^3/uL (1.0-4.8) Monocytes # (Auto) 0.7 x10^3/uL (0.0-1.1) Eosinophils # (Auto) 0.1 x10^3/uL (0.0-0.7) Basophils # (Auto) 0.0 x10^3/uL (0.0-0.2) Platelet Estimate Pending Sodium Level 140 mmol/L (136-145) Potassium Level 4.0 mmol/L (3.5-5.1) Chloride Level 105 mmol/L (98-107) Carbon Dioxide Level 25 mmol/L (21-32) Anion Gap 10 (6-14) Blood Urea Nitrogen 10 mg/dL (7-20) Creatinine 0.7 mg/dL (0.6-1.0) Estimated GFR (Cockcroft-Gault) 103.7 BUN/Creatinine Ratio 14 (6-20) Glucose Level 86 mg/dL (70-99) Calcium Level 8.2 mg/dL (8.5-10.1) L Total Bilirubin 0.3 mg/dL (0.2-1.0) Aspartate Amino Transferase (AST) 28 U/L (15-37) Alanine Aminotransferase (ALT) 33 U/L (14-59) Alkaline Phosphatase 82 U/L (46-116) Total Protein 7.0 g/dL (6.4-8.2) Albumin 3.3 g/dL (3.4-5.0) L Albumin/Globulin Ratio 0.9 (1.0-1.7) L Lipase 191 U/L (73-393) Laboratory Tests 09/23/20 15:34 Laboratory Tests 09/23/20 15:34 Vital Signs: Vital Signs Date Time Temp Pulse Resp B/P (MAP) Pulse Ox O2 Delivery O2 Flow Rate FiO2 09/23/20 15:04 98.4 71 17 114/67 (83) 100 Room Air 98.4 (GEETHA ROJAS [address] FREIGHT FIRER) EKG: EKG: [] (GEETHA ROJ[address] RO[address] FRE[employer] FIRER) Radiology/Procedures: Radiology/Procedures: []PROCEDURE: PELVIS COMPLETE Exam: Ultrasound pelvis complete Indication: Pelvic pain Technique: Real-time grayscale and color Doppler images of the pelvis were obtained by the department automatic buffing wheel former. Comparisons: None FINDINGS: Uterus measures 8.3 x 4.1 x 4.3 cm. Endometrium has a normal appearance measuring 4 mm in thickness. Right ovary measures 3.2 x 1.8 x 2.0 cm. Left ovary measures 2.5 x 2.0 x 2.8 cm. There is a cyst within the left ovary measuring up to 1.7 cm in diameter. Vascular flow identified in the ovaries bilaterally. No free fluid in pelvis. IMPRESSION: 1. Simple cyst in the left ovary measuring up to 1.7 cm. Pelvis torsion. 2. Normal sonographic appearance of the uterus. Electronically signed by: Faheem Cantor MD (09/23/2020 4:34 PM) [facility] DICTATED and SIGNED BY: FAHEEM CANTOR MD DATE: 09/23/20 [id number] PROCEDURE: ABDOMEN SUPINE & UPRIGHT EXAM: Abdomen, 2 views. HISTORY: Pain. COMPARISON: None. FINDINGS: Frontal upright and supine views of abdomen are obtained. There is a moderate amount of stool within the colon. There is no evidence of small bowel obstruction. There is no free air. IMPRESSION: Moderate colonic stool. Electronically signed by: Kaitlin De La Garza MD (09/23/2020 5:04 PM) [id number] DICTATED and SIGNED BY: KAITLIN DE LA GARZA MD DATE: 09/23/20 [id number] (LADARI[address]SYLVIAClaudiaGEETHA [address] FREIGHT FIRER) Course & Med Decision Making: Course & Med Decision Making Pertinent Labs and Imaging studies reviewed. (See chart for details) This is a 24-year-old female patient presenting to the ED today with complaints of left lower quadrant abdominal pain, symptoms began yesterday. UA noted for small amount of leukocytes that appears contaminated with squamous cells epithelium. Negative urine hCG, pelvic ultrasound positive for a simple left ovarian cyst. Abdominal x-ray noted for moderate constipation. Communication very difficult as stated that at this patient speaks a dialect that we are unable to find on the accounts receivable administrator line (GEETHA ROJAS APRN) Course & Med Decision Making The chart was reviewed. MLP assessed and treated patient independently I was available for consult.. Agree with the plan of care. (CHELSIE GODOY I DO) Dragon Disclaimer: Dragon Disclaimer: This electronic medical record was generated, in whole or in part, using a voice recognition dictation system. (GEETHA ROJAS APRN) Departure Departure Impression: Primary Impression: Left ovarian cyst Additional Impression: Constipation Qualified Codes: K59.00 - Constipation, unspecified Disposition: HOME / SELF CARE / HOMELESS Condition: STABLE Referrals: NO PCP (PCP) EZRA BUNDY MD Follow-up in 1 week Patient Instructions: Constipation, Adult, Ovarian Cyst Additional Instructions: You were evaluated in the emergency room and noted to be constipated. You need to increase your dietary fiber intake, water intake, take MiraLAX every day. You also have a simple cyst on your left ovary. Please follow-up with your CLOTH FINISHING RANGE OPERATOR. Your test is negative Scripts Polyethylene Glycol 3350 (MIRALAX) 119 Gm Powder 17 GM PO DAILY for constipation, #255 GM 0 Refills dissolve in water Prov: GEETHA ROJAS APRN 09/23/20 GEETHA ROJAS APRN September 23, 2020 19:00 CHELSIE GODOY I DO September 25, 2020 06:09
[2020-09-23] MEDS ORDERED: BISACODYL 5 MG TABLET.DR. PO STA (19:01)
[2020-09-23 19:05] VITALS: BP 96/67
[2020-09-23] MEDS ORDERED: MAGNESIUM CITRATE 296 ML SOLUTION. PO ONE (19:15)
[2020-09-23 20:00] LABS: ANISOCYTOSIS SLIGHT; HYPOCHROMIA MOD; MICROCYTOSIS MOD; PLT ESTIMATE ADEQUATE (ADEQUATE)
[2020-09-23 20:06] LABS: OVALOCYTES FEW
[2020-09-23 20:07] LABS: SCHISTOCYTES OCC
== END 2020-09-23 19:23 | disposition home or self-care (01) ==
LOC: ER 13:55
DX: N83.202 Unspecified ovarian cyst, left side (principal); K59.00 Constipation, unspecified
CPT/HCPCS: 36415; 74021; 76856; 80053; 81001; 81025; 83690; 85025; 87086; 99285-25

== ENCOUNTER 2021-02-17 00:11 | Emergency (ER) | payer SELFPAY ==
[~2021-02-17] VITALS: Ht 162.6 cm; Wt 63.6 kg
[~2021-02-17 00:11] MED LIST changes: +POLY119P4 PO
--- NOTE | 2021-02-17 00:39 | PHYS DOC ---
Past Medical History Past Medical History: No Pertinent History Past Surgical History: No Surgical History Smoking Status: Never Smoker Alcohol Use: None Drug Use: None General Adult EDM: Chief Complaint: ABDOMINAL PAIN HPI: HPI: Patient is a 25 year old female who presents with approximately 6 hours of left lower quadrant pain. Has been constant since onset. Has difficult time describing the character of the pain. Does not radiate. She has had several days of preceding dysuria, urgency, frequency. States that she vomited yesterday, but not today. Has had some occasional chills, but denies outright fever. Has no diarrhea or bloody stools. No vaginal discharge or bleeding. She is sexually active with one partner, does not use barrier contraception. Review of Systems: Review of Systems: Constitutional: Denies fever or chills. [] Eyes: Denies change in visual acuity. [] HENT: Denies nasal congestion or sore throat. [] Respiratory: Denies cough or shortness of breath. [] Cardiovascular: Denies chest pain or edema. [] GI: Reports left lower quadrant abdominal pain. Denies nausea, vomiting, bloody stools or diarrhea. [] : Reports dysuria, urgency, frequency Musculoskeletal: Denies back pain or joint pain. [] Integument: Denies rash. [] Neurologic: Denies headache, focal weakness or sensory changes. [] Endocrine: Denies polyuria or polydipsia. [] Lymphatic: Denies swollen glands. [] Psychiatric: Denies depression or anxiety. [] Heart Score: C/O Chest Pain: N/A Allergies: Allergies: Allergies Coded Allergies Type Severity Reaction Last Updated Verified No Known Drug Allergies 08/24/18 No Physical Exam: PE: Constitutional: Well developed, well nourished, no acute distress, non-toxic appearance. [] HENT: Normocephalic, atraumatic, bilateral external ears normal, oropharynx moist, no oral exudates, nose normal. [] Eyes: PERRLA, EOMI, conjunctiva normal, no discharge. [] Neck: Normal range of motion, no tenderness, supple, no stridor. [] Cardiovascular:Heart rate regular rhythm, no murmur [] Lungs & Thorax: Bilateral breath sounds clear to auscultation [] Abdomen: Minimal suprapubic tenderness to palpation. Soft, no rebound, no guarding. Skin: Warm, dry, no erythema, no rash. [] Back: No tenderness, no CVA tenderness. [] Extremities: No tenderness, no cyanosis, no clubbing, ROM intact, no edema. [] Neurologic: Alert and oriented X 3, normal motor function, normal sensory function, no focal deficits noted. [] Psychologic: Affect normal, judgement normal, mood normal. [] EKG: EKG: [] Radiology/Procedures: Radiology/Procedures: [] Impression: [facility] [address] [place] [address] IMAGING REPORT Signed PATIENT: CHLOÉ TAYLOR ACCOUNT: [id number] : 1995 LOCATION: ER AGE: 25 SEX: F EXAM STATUS: REG ER ORD. PHYSICIAN: HAI KC MD REASON: abd pain, pregancy test + PROCEDURE: OB < 14 WKS EXAMINATION: US OB <14 WKS +TV (FIRST TRIMESTER PELVIC ULTRASOUND) CLINICAL HISTORY: Abdominal pain, pregancy test + TECHNIQUE: Sonography of the pelvis was performed by transabdominal and transvaginal techniques. COMPARISON: None. FINDINGS: Uterus: - Orientation: Anteverted - Size: 10.1 x 5.7 x 6.0 cm - Myometrium: Homogeneous echogenicity Gestation: - Intrauterine Gestational Sac: Single present with normal morphologic appearance and normal amniotic fluid volume - Yolk Sac: Present, 4 mm - Embryo: Single present - [place] Rump Length: 5 mm, corresponding gestational age 6 weeks 2 days - Heart Rate: 105 bpm - Perigestational Hemorrhage: Absent Right Ovary: - Size: 3.4 x 1.8 x 2.1 cm - Normal sonographic appearance and blood flow. Left Ovary: - Size: 3.0 x 1.3 x 1.2 cm - Normal sonographic appearance and blood flow. Pelvic Free Fluid: Absent IMPRESSION: Single live intrauterine gestation with sonographic estimated gestational age 6 weeks 2 days and estimated date of delivery 10/11/2021. Electronically signed by: Tello Guallpa DO (02/17/2021 3:08 AM) [facility] DICTATED and SIGNED BY: TELLO GUALLPA DO DATE: 02/17/21 [id number] Course & Med Decision Making: Course & Med Decision Making Pertinent Labs and Imaging studies reviewed. (See chart for details) Patient is 25-year-old female who presents with left lower quadrant pain, dysuria, urgency, frequency. On arrival is afebrile, hemodynamically stable. Abdominal exam with only mild suprapubic tenderness to palpation. History concerning for UTI. Will check UA, urine , CBC, BMP. Will defer imaging for now. 1238 UA concerning for UTI. Urine culture sent. Will give cefdinir. Urine test results positive. Given her abdominal pain and positive test a pelvic ultrasound was ordered, and beta hCG quantitative ordered to aid in interpretation of the study. 0131 US shows IUP, estimated gestational age 6wk, 2 day. Patient aware of findings. Given OB follow up information. Sent w/ Rx for cefdinir. 0316 Dragon Disclaimer: Dragon Disclaimer: This electronic medical record was generated, in whole or in part, using a voice recognition dictation system. Departure Departure Impression: Primary Impression: UTI (urinary tract infection) Additional Impression: Disposition: HOME / SELF CARE / HOMELESS Condition: STABLE Referrals: NO PCP (PCP) ALISON ROSEN MD Additional Instructions: You have a urinary tract infection. You will need to take the full 7 days of antibiotic. You were also . Your estimated due date is 10/11/2021. Your fetus/baby is approximately 6 weeks and 2 days old. Please follow-up with an OB doctor. I have attached a phone number for an OB doctor through [employer]. Scripts Cefdinir (CEFDINIR) 300 Mg Capsule 1 CAP PO BID, #14 CAP Prov: HAI KC MD 02/17/21 HAI KC MD Feb 17, 2021 00:39
[2021-02-17 00:44] LABS: BILIRUBIN,URINE NEGATIVE (NEG); CLARITY,URINE CLOUDY; COLOR,URINE YELLOW; NITRITE,URINE NEGATIVE (NEG); PH,URINE 6.5 (<5.0-8.0); PROTEIN,URINE 100 mg/dL (NEG-TRACE)
[2021-02-17 00:53] LABS: BACTERIA,URINE MOD /HPF (0-FEW); WBC,URINE TNTC /HPF (0-4)
[2021-02-17] MEDS ORDERED: CEFDINIR 300 MG CAPSULE PO ONE (01:15)
[2021-02-17 01:57] LABS: BASO % 1 % (0-3); EOS # 0.1 x10^3/uL (0.0-0.7); EOS % 1 % (0-3); HEMATOCRIT 31.2 % (36.0-47.0); LYMPH # 2.6 x10^3/uL (1.0-4.8); LYMPH % 34 % (24-48); MEAN CORPUSCULAR HEMOGLOBIN 24 pg (25-35); MEAN CORPUSCULAR HGB CONC 32 g/dL (31-37); MEAN CORPUSCULAR VOLUME 74 fL (79-100); MONO # 0.7 x10^3/uL (0.0-1.1); MONO % 9 % (0-9); NEUT # 4.3 x10^3/uL (1.8-7.7); NEUT % 56 % (31-73); PLATELET COUNT 374 x10^3/uL (140-400); RED BLOOD COUNT 4.21 x10^6/uL (3.50-5.40); RED CELL DISTRIBUTION WIDTH 17.1 % (11.5-14.5); WHITE BLOOD COUNT 7.7 x10^3/uL (4.0-11.0)
[2021-02-17 02:03] LABS: CALCIUM 8.4 mg/dL (8.5-10.1); CREATININE 0.6 mg/dL (0.6-1.0); GFR 122.8; POTASSIUM 3.4 mmol/L (3.5-5.1)
--- NOTE | 2021-02-17 03:10 | RAD ---
EXAMINATION: US OB <14 WKS +TV (FIRST TRIMESTER PELVIC ULTRASOUND) CLINICAL HISTORY: Abdominal pain, pregancy test + TECHNIQUE: Sonography of the pelvis was performed by transabdominal and transvaginal techniques. COMPARISON: None. FINDINGS: Uterus: - Orientation: Anteverted - Size: 10.1 x 5.7 x 6.0 cm - Myometrium: Homogeneous echogenicity Gestation: - Intrauterine Gestational Sac: Single present with normal morphologic appearance and normal amniotic fluid volume - Yolk Sac: Present, 4 mm - Embryo: Single present - [place] Rump Length: 5 mm, corresponding gestational age 6 weeks 2 days - Heart Rate: 105 bpm - Perigestational Hemorrhage: Absent Right Ovary: - Size: 3.4 x 1.8 x 2.1 cm - Normal sonographic appearance and blood flow. Left Ovary: - Size: 3.0 x 1.3 x 1.2 cm - Normal sonographic appearance and blood flow. Pelvic Free Fluid: Absent IMPRESSION: Single live intrauterine gestation with sonographic estimated gestational age 6 weeks 2 days and alley mated date of delivery 10/11/2021. Electronically signed by: Tello Darnell DO (02/17/2021 3:08 AM) [facility]
[2021-02-17] MEDS ORDERED: CEFD300C PO (03:21)
[2021-02-17 03:27] VITALS: BP 114/60
== END 2021-02-17 03:40 | disposition home or self-care (01) ==
LOC: ER 00:11
DX: O23.41 Unspecified infection of urinary tract in pregnancy, first trimester (principal); Z3A.01 Less than 8 weeks gestation of pregnancy
CPT/HCPCS: 36415; 76801; 80048; 81001; 81025; 84702; 85025; 87077; 87086; 99285-25

== ENCOUNTER 2021-07-28 19:19 | Observation (INO) | payer SELFPAY ==
[~2021-07-28 19:19] MED LIST changes: +CEFD300C PO
[2021-07-28] MEDS ORDERED: IV RINGERS,LACTATED 1000ML 1,000 ML IV SCH (19:30)
[2021-07-28 20:07] LABS: BARBITURATES NEG (NEG); BENZODIAZEPINES NEG (NEG); CANNABINOIDS NEG (NEG); COCAINE NEG (NEG); METHADONE NEG (NEG); OPIATES NEG (NEG); PHENCYCLIDINE NEG (NEG)
[2021-07-28 20:08] LABS: AMPHETAMINE/METHAMPHETAMINE NEG (NEG)
== END 2021-07-28 20:52 | disposition home or self-care (01) ==
LOC: 3 SO LND 19:19
PROVIDERS: ADMIT Obstetrics & Gynecology; ATTEND Obstetrics & Gynecology
DX: O26.893 Other specified pregnancy related conditions, third trimester (principal); R10.9 Unspecified abdominal pain; M25.551 Pain in right hip; Z3A.38 38 weeks gestation of pregnancy; Z79.899 Other long term (current) drug therapy
CPT/HCPCS: 59025; 80307; 81003; G0378; G0379

== ENCOUNTER 2021-09-10 12:17 | Observation (INO) | payer MEDICAID ==
[2021-09-10] MEDS ORDERED: IV RINGERS,LACTATED 1000ML 1,000 ML IV PRN (12:45)
[2021-09-10 13:45] LABS: BACTERIA,URINE MODERATE /HPF (0-FEW); RBC,URINE 0 /HPF (0-2); WBC,URINE 20-40 /HPF (0-4)
[2021-09-10] MEDS ORDERED: AZITHROMYCIN 250 MG TABLET. PO ONE (15:00)
== END 2021-09-10 15:25 | disposition home or self-care (01) ==
LOC: 3 SO LND 12:17
PROVIDERS: ADMIT Obstetrics & Gynecology; ATTEND Obstetrics & Gynecology
DX: O26.893 Other specified pregnancy related conditions, third trimester (principal); R10.30 Lower abdominal pain, unspecified; Z3A.35 35 weeks gestation of pregnancy
CPT/HCPCS: 59025; 81001; 87086; 87653; G0378; G0379